=== PATIENT | male | born 1985 | race Caucasian/White ===

== ENCOUNTER 2019-04-05 13:33 | Day surgery (SDC) | payer BC ==
[2019-04-05] VITALS (11 sets, daily range): BP systolic 119–134; BP diastolic 57–86; PULSE 67–90; TEMP 98–98.6
[~2019-04-05] VITALS: Ht 185.4 cm; Wt 152.5 kg
--- NOTE | 2019-04-05 13:55 | NUR ---
PATIENT ADMITED INTO ROOM 327 FOR APPY. A&O. VSS. REPORTS MOD PAIN TO RLQ AND HAS TAKEN NOTHING FOR PAIN AT HOME. NO HOME MEDS. HEAD TO TOE COMPLETE. AT BEDSIDE. OR NOTIFIED OF ARRIVAL. AWAITING FURTHER ORDERS.
--- NOTE | 2019-04-05 16:40 | NUR ---
PATIENT GOING DOWN TO OR VIA BED
--- NOTE | 2019-04-05 18:40 | NUR ---
PATIENT BACK IN ROOM POST OP. A&O. VSS. PATIENT C/O SOME ABD PAIN RATED AT 4-5. PATIENT DENIES NEED FOR PAIN MEDS AT THIS TIME. ABDOMINAL LAP SITES X3 WITH SANTANA SET. BOWL SOUNDS PRESENT X4 QUADS. NO C/O N/V. IV FLUIDS INFUSING INTO LEFT HAND. HEAD TO TOE WNL. AT BEDSIDE
--- NOTE | 2019-04-05 19:00 | NUR ---
Report received, assumed care for litigation manager. Assessment complete. Current VS stable-still post op. C/O pain to abdomen-right upper and lower quadrants. Rating pain 5/10 described as throbbing with intermittent stab. [place] one tab given per dr order. Denies N/V. Provided with clear liquids and crackers. Lap sites X3-kaplan set-open to air. Edges well approximated. 20g IV to left hand-LR infusing. Plan of care discussed. Due To Void -instructed to call for assistance to bathroom first time up. Verbalizes understanding. Spouse at bedside. Call light within reach. Encouraged to call for questions or concerns. Verbalizes understanding. Will monitor.
[2019-04-06 03:43] VITALS: BP 120/69; PULSE 69; TEMP 97.7
--- NOTE | 2019-04-06 07:03 | NUR ---
REPORT FROM MELO ANN.
[2019-04-06 08:08] VITALS: BP 122/71; PULSE 80; TEMP 97.9
--- NOTE | 2019-04-06 09:43 | NUR ---
PT INDEPENDENT IN ROOM, ATE BREAKFAST,SHOWERED, PAIN WELL CONTROLLED WITH PO MEDS. DISCHARGE INSTRUCTIONS REVIEWED AND PT WAS ESCORTED TO FRONT AMBULATORY.
--- NOTE | 2019-04-06 09:46 | NUR ---
NAVEED met with patient and to discuss discharge plan. Patient reports he plans to return home shortly. Patient lives independently at home with his . Patient's PCP is Dr Ulloa and he obtains prescriptions from [facility]. Patient is independent with all ADLs and does not use any DME or home health services. Patient does not have a DPOA-HC and is not interested in completing one at this time. No discharge needs.
== END 2019-04-06 09:45 | disposition home or self-care (01) ==
LOC: SDCO 13:33 → JCC 13:45 → SDCO 04-06 09:45
DX: K35.80 Unspecified acute appendicitis (principal)
CPT/HCPCS: OP; A4216; J0696; J1100; J1170; J2250; J2405; J2704; J3010

== ENCOUNTER → 2019-04-05 | Outpatient (CLI) | payer BC | LOC: COL.RAD 10:42 | DX: K35.80 Unspecified acute appendicitis (principal); K76.0 Fatty (change of) liver, not elsewhere classified; R91.1 Solitary pulmonary nodule | CPT/HCPCS: Q9967 ==

== ENCOUNTER → 2023-10-19 | Outpatient (CLI) | payer BC | LOC: DIA.ED 08:23 | DX: E11.9 Type 2 diabetes mellitus without complications (principal) | CPT/HCPCS: G0108 ==